=== PATIENT | female | born 1965 | race Caucasian/White ===

== ENCOUNTER 2020-09-21 14:32 | Emergency (ER) | payer BC ==
[~2020-09-21] VITALS: Ht 167.6 cm; Wt 64.0 kg
--- NOTE | 2020-09-21 14:52 | PHYS DOC ---
Adult General Chief Complaint Chief Complaint: WEAKNESS/GENERALIZED HPI HPI Patient is a 55-year-old female patient current smoker presenting to the ED today with multiple complaints. Patient reports for the last 5 days she has had a cough with green sputum, generalized weakness, diarrhea which has subsided, dry lips, she states she was seen by the PCP and was told she is dehydrated. Denies any vomiting. Denies any fever. Denies any abdominal pain. (TONJA VELASCO APRN) Review of Systems Review of Systems Constitutional: Denies fever or chills [] Eyes: Denies change in visual acuity, redness, or eye pain [] HENT: Denies nasal congestion or sore throat [] Respiratory: Reports smoking and cough, denies shortness of breath [] Cardiovascular: No additional information not addressed in HPI [] GI: Reports diarrhea. Denies abdominal pain, nausea, vomiting, bloody stools : Denies dysuria or hematuria [] Musculoskeletal: Denies back pain or joint pain [] Integument: Denies rash or skin lesions [] Neurologic: Denies headache, focal weakness or sensory changes [] All other systems were reviewed and found to be within normal limits, except as documented in this note. (TONJA VELASCO APRN) Allergies Allergies Allergies Coded Allergies Type Severity Reaction Last Updated Verified No Known Drug Allergies 09/21/20 No (TONJA VELASCO APRN) Physical Exam Physical Exam Constitutional: Well developed, well nourished, no acute distress, non-toxic appearance. [] HENT: Normocephalic, atraumatic, bilateral external ears normal, oropharynx moist, no oral exudates, nose normal. [] Eyes: PERRLA, EOMI, conjunctiva normal, no discharge. [] Neck: Normal range of motion, no tenderness, supple, no stridor. [] Cardiovascular:Heart rate regular rhythm, no murmur [] Lungs & Thorax: Bilateral breath sounds clear to auscultation [] Abdomen: Bowel sounds normal, soft, no tenderness, no masses, no pulsatile masses. [] Skin: Warm, dry, no erythema, no rash. [] Back: No tenderness, no CVA tenderness. [] Extremities: No tenderness, no cyanosis, no clubbing, ROM intact, no edema. [] Neurologic: Alert and oriented X 3, normal motor function, normal sensory function, no focal deficits noted. [] Psychologic: Affect normal, judgement normal, mood normal. [] (TONJA VELASCO APRN) Current Patient Data Vital Signs Vital Signs Date Time Temp Pulse Resp B/P (MAP) Pulse Ox O2 Delivery O2 Flow Rate FiO2 09/21/20 14:43 97.8 90 16 161/91 (114) 100 Room Air (TONJA VELASCO APRN) EKG EKG [address] Wilkinson sinus rhythm HR 82 no STEMI[] (TONJA VELASCO APRN) Radiology/Procedures Radiology/Procedures [] (TONJA VELASCO APRN) Heart Score Risk Factors: Risk Factors: DM, Current or recent (<one month) smoker, HTN, HLP, family history of CAD, obesity. Risk Scores: Risk Factors: DM, Current or recent (<one month) smoker, HTN, HLP, family history of CAD, obesity. (TONJA VELASCO APRN) Course & Med Decision Making Course & Med Decision Making Pertinent Labs and Imaging studies reviewed. (See chart for details) This is a 55-year-old female patient presenting to the ED today with multiple complaints including cough, generalized weakness, diarrhea which has subsided, dry lips. She was sent to the ED to be worked up for dehydration. Chest x-ray is negative for any acute findings, EKG is negative CBC, cmp with ck of 224, potassium of 3.2, patient was given oral potassium replacement. UA is negative. Patient was given IV fluids. She was tested for COVID-19, results will be called to her. COVID-19 precautions provided. Positive for marijuana in urine. Discharge to home. Follow-up with PCP in the course of next week. (TONJA VELASCO APRN) Dragon Disclaimer Dragon Disclaimer This electronic medical record was generated, in whole or in part, using a voice recognition dictation system. (TONJA VELASCO APRN) Dragon Disclaimer Patient is stable, agree with treatment plan. Patient being tested for Covid (BRANDON WILKINSON DO) Departure Departure: Impression: Primary Impression: Dehydration Additional Impressions: Hypokalemia Marijuana use Person under investigation for COVID-19 Disposition: 01 DC HOME SELF CARE/HOMELESS Condition: STABLE Referrals: LISA TRUJILLO MD (PCP) Patient Instructions: Dehydration, Adult, Hypokalemia-Brief, Marijuana Abuse- Brief Additional Instructions: You were evaluated in the emergency room and noted to be dehydrated. You were given IV fluids. We encourage you to push fluids. You were tested for COVID- 19, quarantine yourself until you get results from us. Maintain good antigen, push fluids. Rest. Follow-up with your doctor in the course of next week. Return to the Ed if symptoms worsen Problem Qualifiers TONJA VELASCO APRN Sep 21, 2020 14:52 BRANDON WILKINSON DO Sep 21, 2020 17:11
[2020-09-21] MEDS ORDERED: IV NORMAL SALINE 1,000ML 1,000 ML IV ONE (15:00)
--- NOTE | 2020-09-21 15:07 | RAD ---
Exam: Chest one view INDICATION: Cough TECHNIQUE: Frontal view of the chest Comparisons: None FINDINGS: The cardiomediastinal silhouette and pulmonary vessels are within normal limits. The lung and pleural spaces are clear. IMPRESSION: No acute cardiopulmonary process. Electronically signed by: Heidi Diaz MD (09/21/2020 3:04 PM) BILLY
[2020-09-21] MEDS ORDERED: FAMOTIDINE 20 MG/2 ML VIAL IVP ONE (15:15)
[2020-09-21] MEDS ORDERED: ONDANSETRON PF 4 MG/2 ML VIAL. IVP ONE (15:15)
--- NOTE | 2020-09-21 15:15 | EKG ---
[address] [address] Test Date: 2020-09-21 Test Time: 15:01:11 Pat Name: REGINO SANCHEZ Department: Room: Gender: F Lead Mechanic: FREDDIE : 1965 Requested By: TONJA VELASCO Order Number: [id number] Reading MD: Measurements Intervals Dearing Rate: 82 P: 51 VT: 140 QRS: 53 QRSD: 90 T: 44 QT: 352 QTc: 414 Interpretive Statements SINUS RHYTHM NORMAL ECG RI6.02 No previous ECG available for comparison
[2020-09-21 15:16] LABS: BASO # 0.1 x10^3/uL (0.0-0.2); BASO % 1 % (0-3); EOS # 0.1 x10^3/uL (0.0-0.7); EOS % 2 % (0-3); HEMATOCRIT 43.1 % (36.0-47.0); HEMOGLOBIN 14.5 g/dL (12.0-15.5); LYMPH # 2.5 x10^3/uL (1.0-4.8); LYMPH % 37 % (24-48); MEAN CORPUSCULAR HEMOGLOBIN 32 pg (25-35); MEAN CORPUSCULAR HGB CONC 34 g/dL (31-37); MEAN CORPUSCULAR VOLUME 95 fL (79-100); MONO # 0.4 x10^3/uL (0.0-1.1); MONO % 6 % (0-9); NEUT # 3.7 x10^3uL (1.8-7.7); NEUT % 54 % (31-73); PLATELET COUNT 265 x10^3/uL (140-400); RED BLOOD COUNT 4.51 x10^6/uL (3.50-5.40); RED CELL DISTRIBUTION WIDTH 14.1 % (11.5-14.5); WHITE BLOOD COUNT 6.8 x10^3/uL (4.0-11.0)
[2020-09-21 15:27] LABS: CALCIUM 9.2 mg/dL (8.5-10.1); GFR 57.1; POTASSIUM 3.2 mmol/L (3.5-5.1)
[2020-09-21 15:41] LABS: ALBUMIN 3.6 g/dL (3.4-5.0); ALBUMIN/GLOBULIN RATIO 0.9 (1.0-1.7); MAGNESIUM 2.2 mg/dL (1.8-2.4); TOTAL BILIRUBIN 0.3 mg/dL (0.2-1.0); TOTAL PROTEIN 7.4 g/dL (6.4-8.2)
[2020-09-21 16:43] LABS: BILIRUBIN,URINE NEG (NEG); CLARITY,URINE CLEAR; COLOR,URINE STRAW; GLUCOSE,URINE NEG (NEG); UROBILINOGEN,URINE 0.2 mg/dL (0.2 mg/dL)
[2020-09-21 16:44] LABS: NITRITE,URINE NEG (NEG)
[2020-09-21 16:46] LABS: AMPHETAMINE/METHAMPHETAMINE NEG (NEG); BARBITURATES NEG (NEG); BENZODIAZEPINES NEG (NEG); CANNABINOIDS POS (NEG); COCAINE NEG (NEG); METHADONE NEG (NEG); OPIATES NEG (NEG); PHENCYCLIDINE NEG (NEG)
[2020-09-21 16:50] LABS: BACTERIA,URINE FEW /HPF (0-FEW); RBC,URINE 0 /HPF (0-2); SQUAMOUS EPITHELIAL CELL,UR FEW /LPF
[2020-09-21 16:53] VITALS: BP 141/84
--- NOTE | 2020-09-23 15:17 | NUR ---
IP: notified, patient of COVID result.
== END 2020-09-21 17:06 | disposition home or self-care (01) ==
LOC: ER 14:32
DX: E86.0 Dehydration (principal); E87.6 Hypokalemia; F17.210 Nicotine dependence, cigarettes, uncomplicated; F12.10 Cannabis abuse, uncomplicated; Z20.828 Contact with and (suspected) exposure to other viral communicable diseases
CPT/HCPCS: 36415; 71045; 80053; 80307; 81001; 82553; 83690; 83735; 83880; 84443; 84484; 85025; 85610; 85730; 93005; 96361; 96374; 96375; 99285; C9803; J2405; J3490; J7030; U0003

== ENCOUNTER → 2020-11-08 | Outpatient (CLI) | payer BC ==
--- NOTE | 2020-11-10 15:34 | RAD ---
BILATERAL SCREENING MAMMOGRAM History: Routine screening. Comparison: None. Exam performed at outside facilities are not available. This exam is considered as a baseline as a result. Technique: Routine bilateral digital mammogram views were obtained. Findings: Breast Tissue Density B : There are scattered areas of fibroglandular density. There are no dominant masses, suspicious microcalcifications, or architectural distortion. No suspicious asymmetry. IMPRESSION: No mammographic evidence of malignancy. Recommend routine screening. BI-RADS category 1: Negative. The images were reviewed with computer aided detection. Patient information is entered into the reminder system with a target due date for the next screening mammogram. Mammography is the most sensitive method for finding small breast cancers, but it does not detect them all and is not a substitute for careful clinical examination. A negative mammogram does not negate a clinically suspicious finding and should not result in delay in biopsying a clinically suspicious abnormality. "Our facility is accredited by the [employer] Mammography Program." Electronically signed by: George Stephenson MD (11/10/2020 3:31 PM) [id number]
== END ==
LOC: MAMMO 09:48
PROVIDERS: ATTEND Specialist
DX: Z12.31 Encounter for screening mammogram for malignant neoplasm of breast (principal)
CPT/HCPCS: 77067

== ENCOUNTER 2021-08-29 05:04 | Emergency (ER) | payer BC ==
[~2021-08-29] VITALS: Ht 160 cm; Wt 63.1 kg
--- NOTE | 2021-08-29 05:06 | PHYS DOC ---
Past History Past Medical History: Arthritis, Bronchitis, COPD Past Surgical History: Hysterectomy Alcohol Use: None General Adult HPI: HPI: ".. I over did washing my car yesterday...now I got a spasm s in my rt. shoulder.. 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 I may not be able to work because of the spasms in my shoulder.." Patient is a 56 year old FEMALE who presents with above hx and complaints of right arm and right trapezius spasm. Patient reports she had washed her car yesterday and afterwards she noticed she started to get soreness in her trapezius area and right shoulder. Patient has been using heat pads at home with no improvement. Patient is also taking [id number] Tylenol and ibuprofen with no improvement. Patient does have obvious spasm in the trapezius area and trigger point areas of pain. Distal neurovascular appears to be equal to left hand. Patient is right-hand dominant. Patient denies any shortness of breath or increased wheezing from her COPD and bronchitis. Patient denies any previous cardiac history. Patient denies any fever or chills. Patient denies any recent travel. Patient denies any specific ill contacts. No history of cancer. Patient has not completed her Covid vaccination. Pt.follows with Dr. Trujillo. Review of Systems: Review of Systems: Constitutional: Denies fever or chills Eyes: Denies change in visual acuity HENT: Denies nasal congestion or sore throat Respiratory: Denies cough or shortness of breath Cardiovascular: Denies chest pain or edema GI: Denies abdominal pain, nausea, vomiting, bloody stools or diarrhea : Denies dysuria Musculoskeletal: Patient complains of right trapezius muscle spasms Integument: Denies rash Neurologic: Denies headache, focal weakness or sensory changes Endocrine: Denies polyuria or polydipsia Lymphatic: Denies swollen glands Psychiatric: Denies depression or anxiety Family History: Family History: Noncontributory to presentation Current Medications: Current Meds: See nursing for home meds Allergies: Allergies: Allergies Coded Allergies Type Severity Reaction Last Updated Verified No Known Drug Allergies 09/21/20 No Physical Exam: PE: Constitutional: Moderate acute distress, non-toxic appearance. [] HENT: Normocephalic, atraumatic, bilateral external ears normal, oropharynx moist, no oral exudates, nose normal. Right trapezius tenderness and neck. Eyes: PERRLA, EOMI, conjunctiva normal, no discharge. [] Neck: Normal range of motion, tight PCS muscle spasm and tenderness, supple, no stridor. [] Cardiovascular:Heart rate regular rhythm, no murmur [] Lungs & Thorax: Bilateral breath sounds equal apex with scattered wheezes on auscultation [] Abdomen: Bowel sounds normal, soft, no tenderness, no masses, no pulsatile masses. [] Skin: Warm, dry, no erythema, no rash. [] Back: Right trapezius tenderness, no CVA tenderness. [] Extremities: No tenderness, no cyanosis, no clubbing, ROM intact, no edema. No cording appreciated Neurologic: Alert and oriented X 3, normal motor function, normal sensory function, no focal deficits noted. [] Psychologic: Affect anxious, judgement normal, mood normal. [] EKG: EKG: [] Radiology/Procedures: Radiology/Procedures: [] Heart Score: C/O Chest Pain: N/A Risk Factors: Risk Factors: DM, Current or recent (<one month) smoker, HTN, HLP, family history of CAD, obesity. Risk Scores: Score 0 - 3: 2.5% MACE over next 6 weeks - Discharge Home Score 4 - 6: 20.3% MACE over next 6 weeks - Admit for Clinical Observation Score 7 - 10: 72.7% MACE over next 6 weeks - Early Invasive Strategies Course & Med Decision Making: Course & Med Decision Making Pertinent Labs and Imaging studies reviewed. (See chart for details) Patient received a IM injection of Toradol and Norflex. Afterwards patient r eported marked improvement of symptoms. Patient to continue ice packs 4 times a day and as needed in the area of muscle spasms for the next 3 days. After 3 days may advance to moist heat. Patient to continue take Tylenol or Profen as needed for pain. May do a trial of Flexeril 10 mg up to 3 times a day for muscle spasms. Follow-up with Dr. Tim Roca. Consider gentle massage. Return if any concerns. Patient encouraged to get her Covid vaccination. Impression: 1. Right trapezius muscle spasm 2. Muscle overuse syndrome 3. History of bronchitis and COPD [] Dragon Disclaimer: Dragon Disclaimer: This electronic medical record was generated, in whole or in part, using a voice recognition dictation system. Departure Departure: Referrals: LISA TRUJILLO MD (PCP) Scripts Cyclobenzaprine Hcl (CYCLOBENZAPRINE HCL) 10 Mg Tablet 10 MG PO TID PRN PRN for SPASMS, #30 TAB Prov: SILVINO GROVER MD 08/29/21 [place]on Disclaimer This chart was dictated in whole or in part using Voice Recognition software in a busy, high-work load, and often noisy Emergency Department environment. It may contain unintended and wholly unrecognized errors or omissions. SILVINO GROVER MD Aug 29, 2021 05:06
[2021-08-29 05:10] VITALS: BP 162/75
[2021-08-29] MEDS ORDERED: CYCL-331 PO (05:41)
[2021-08-29] MEDS ORDERED: KETOROLAC 60 MG/2 ML VIAL. IM ONE (06:00)
[2021-08-29] MEDS ORDERED: ORPHENADRINE CITRATE 60 MG/2 ML VIAL. IM ONE (06:00)
== END 2021-08-29 05:59 | disposition home or self-care (01) ==
LOC: ER 05:04
DX: M62.838 Other muscle spasm (principal); M70.811 Other soft tissue disorders related to use, overuse and pressure, right shoulder; J44.9 Chronic obstructive pulmonary disease, unspecified; Y93.89 Activity, other specified
CPT/HCPCS: 96372; 99284; J1885; J2360